=== PATIENT | female | born 1975 | race Caucasian/White ===

== ENCOUNTER 2019-03-03 08:44 | Outpatient (CLI) | payer OTHER | END 2019-03-03 20:32 | disposition home or self-care (01) | LOC: SMA 08:44 | DX: Z12.31 Encounter for screening mammogram for malignant neoplasm of breast (principal) | CPT/HCPCS: 77067 ==

== ENCOUNTER 2020-09-02 08:55 | Outpatient (CLI) | payer BC | END 2020-09-02 20:50 | disposition home or self-care (01) | LOC: SMA 08:55 | PROVIDERS: ATTEND Family Medicine | DX: Z12.31 Encounter for screening mammogram for malignant neoplasm of breast (principal); N60.02 Solitary cyst of left breast; N60.01 Solitary cyst of right breast | CPT/HCPCS: 76641; 77067 ==

== ENCOUNTER 2021-05-04 09:22 | Outpatient (CLI) | payer BC | END 2021-05-04 20:16 | disposition home or self-care (01) | LOC: SUS 09:22 | PROVIDERS: ATTEND Family Medicine | DX: N63.14 Unspecified lump in the right breast, lower inner quadrant (principal); N60.01 Solitary cyst of right breast; N60.02 Solitary cyst of left breast; N63.23 Unspecified lump in the left breast, lower outer quadrant; R92.2 Inconclusive mammogram | CPT/HCPCS: 76641 ==

== ENCOUNTER 2021-08-04 09:44 | Outpatient (CLI) | payer BC | END 2021-08-04 19:43 | disposition home or self-care (01) | LOC: SMA 09:44 | PROVIDERS: ATTEND Obstetrics & Gynecology | DX: Z12.31 Encounter for screening mammogram for malignant neoplasm of breast (principal) | CPT/HCPCS: 77067 ==